=== PATIENT | female | born 1980 | race Native Hawaiian/Other Pacific Islander ===

== ENCOUNTER 2020-04-13 11:38 | Outpatient (CLI) | payer OTHER | END 2020-04-13 19:00 | disposition home or self-care (01) | LOC: INF 11:38 | PROVIDERS: ATTEND Internal Medicine | DX: Z23 Encounter for immunization (principal) | CPT/HCPCS: 96372 ==

== ENCOUNTER 2020-05-07 10:08 | Outpatient (CLI) | payer OTHER | END 2020-05-07 23:59 | disposition home or self-care (01) | LOC: INF 10:08 | PROVIDERS: ATTEND Internal Medicine | DX: Z23 Encounter for immunization (principal) | CPT/HCPCS: 96372 ==

== ENCOUNTER 2020-09-11 15:24 | Outpatient (CLI) | payer OTHER | END 2020-09-11 20:02 | disposition home or self-care (01) | LOC: MAMMO 15:24 | PROVIDERS: ATTEND Obstetrics & Gynecology | DX: Z12.31 Encounter for screening mammogram for malignant neoplasm of breast (principal) ==

== ENCOUNTER 2021-10-07 08:45 | Outpatient (CLI) | payer OTHER | END 2021-10-07 19:27 | disposition home or self-care (01) | LOC: MAMMO 08:45 | PROVIDERS: ATTEND Obstetrics & Gynecology | DX: Z12.31 Encounter for screening mammogram for malignant neoplasm of breast (principal) ==